=== PATIENT | female | born 1955 | race Asian ===

== ENCOUNTER 2017-09-05 10:12 | Emergency (ER) | payer MEDICAID ==
[~2017-09-05] VITALS: Ht 170.2 cm; Wt 61.2 kg
[2017-09-05 10:19] VITALS: Ht 170.2 cm; Wt 61.2 kg
[2017-09-05 11:10] LABS: CALCIUM 8.7 mg/dL (8.5-10.1); CARBON DIOXIDE 29.4 mmol/L (21-32); CHLORIDE SERUM 100 mmol/L (98-107); CREATININE SERUM 0.5 mg/dL (0.6-1.0); GFR1 > 60 mL/min; GLUCOSE SERUM 175 mg/dL (74-106); SODIUM SERUM 136 mmol/L (136-145)
[2017-09-05] MEDS ORDERED: JANUVIA100 M1 PO (11:15)
[2017-09-05] MEDS ORDERED: LUTEIN PO (11:16)
[2017-09-05] MEDS ORDERED: D3-50001 TAB PO (11:16)
[2017-09-05 11:18] LABS: BASOPHIL % 0.2 % (0-2); PLATELET COUNT 311 x10^3mcL (130-400)
[2017-09-05 11:21] LABS: ALBUMIN 3.4 g/dL (3.4-5.0); ALKALINE PHOSPHATASE 81 U/L (46-116); ALT/SGPT 20 U/L (14-59); AST/SGOT 13 U/L (15-37); BILIRUBIN TOTAL 0.6 mg/dL (0.20-1.00); RED CELL DISTRIBUTION WIDTH 15.8 % (11.5-14.5); TOTAL PROTEIN, SERUM 7.8 g/dL (6.4-8.2)
[2017-09-05 11:27] LABS: CK-MB < 0.5 ng/mL (0-3.6); CREATINE KINASE 26 U/L (26-192)
[2017-09-05 11:49] LABS: microscopic required? YES; urine erythrocyte 3+ (NEGATIVE)
[2017-09-05 13:02] VITALS: BP 111/64
== END 2017-09-05 13:02 | disposition home or self-care (01) ==
LOC: ED 10:12
PROVIDERS: Emergency Medicine
DX: N39.0 Urinary tract infection, site not specified (principal); E11.9 Type 2 diabetes mellitus without complications; E05.90 Thyrotoxicosis, unspecified without thyrotoxic crisis or storm; Z90.49 Acquired absence of other specified parts of digestive tract
CPT/HCPCS: 83880; J0696; J1885; J3010; J7030; Q0092